=== PATIENT | female | born 1995 | race Caucasian/White ===

== ENCOUNTER 2016-09-23 23:42 | Observation (INO) | payer MEDICAID ==
[2016-09-23] MEDS ORDERED: Sodium Chloride 0.9% 10 ML Syringe FLUSH PRN (23:44)
[2016-09-23] MEDS ORDERED: Naloxone 0.4 MG/ML SDV IM ONE (23:44)
[2016-09-23] MEDS ORDERED: Sodium Chloride 0.9% 1,000 ML IV SCH (23:45)
[2016-09-24 00:25] LABS: CHLORIDE,CL 111 mmol/L (98-107); SODIUM,NA 148 mmol/L (136-145)
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
[2016-09-24] MEDS ORDERED: Naloxone 0.4 MG/ML SDV IVPUSH ONE (03:05)
[2016-09-24] MEDS ORDERED: Acetaminophen 325 MG Tab PO PRN (04:09)
[2016-09-24] MEDS ORDERED: Ondansetron 4 MG/2 ML SDV IV PRN (04:09)
[2016-09-24] MEDS ORDERED: LORazepam 2 MG/ML MDV IVPUSH PRN (04:14)
[2016-09-24] MEDS ORDERED: Nicotine 21 MG/24 Hr Patch TRDERM ONE (04:30)
[2016-09-24] MEDS ORDERED: MVI, Adult with Vitamin K 10 ML, Folic Acid 1 MG, Thiamine 100 MG in Sodium Chloride 0.... IV SCH ×4 (04:30)
--- NOTE | 2016-09-24 04:39 | PCM.HP ---
H&P History of Present Illness - General Date of Service: 09/24/16 Admit Problem/Dx: ETOH intoxication Altered Mental Status Dehydration Source of Information: EMS, EMS Notes Reviewed, Family, RN, RN Notes Reviewed History Limitations: Reports: Intoxication - History of Present Illness Initial Comments - Free Text/Narative: [id number] 02:30 21-year-old female with a past medical history of depression, anxiety, insomnia is admitted to the observation unit for a diagnosis of acute alcohol intoxication, altered mental status, dehydration. History is obtained from the EMS crew and the patient's boyfriend. According to the EMS, they were dispatched to [place] call for [place] Upon the EMS arrival the patient was unresponsive. The patient's vital signs were stable and the patient was brought to the emergency room. Upon arrival the patient was not responsive, although she was maintaining a patent airway. According to the patient's boyfriend, the patient had started drinking alcohol earlier this evening. The boyfriend states that he did not think anything of it as she seemed to be acting normally. The patient's boyfriend states that the patient left the house for no reason. The boyfriend states that he did not go after the patient because he was watching their child. The boyfriend states the patient does not consume alcohol on a regular basis. The boyfriend states that he is unaware of any current problems or concerns going on with the patient that would justify her behavior this evening. The foot from states there has been no recent issues or recent arguments. 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, Neurological History: Reports: Other (See Below) (Insomnia) Psychiatric History: Reports: Addiction, Anxiety, Depression, Suicidal Ideation - Past Surgical History HEENT Surgical History: Reports: Tonsillectomy Social & Family History - Family History Family Medical History: Noncontributory - Tobacco Use Smoking Status *Q: Current Every Day Smoker Years of Tobacco use: 3 Packs/Tins Daily: 0.5 Used Tobacco, but Quit: No Second Hand Smoke Exposure: Yes - Alcohol Use Alcohol Use History: Yes Alcohol Use in Last Twelve Months: Yes - Recreational Drug Use Recreational Drug Use: No Drug Use in Last 12 Months: Yes Recreational Drug Type: Reports: Cocaine, Codiene, Ecstasy, Heroin, Marijuana/ Hashish, Methamphetamine, Oxycodone, Ritalin, Valium, Vicodin, Xanax Recreational Drug Use Frequency: Daily - Living Situation & Occupation Living situation: Reports: with Significant Other H&P Review of Systems - Review of Systems: Review Of Systems: Unable To Obtain (due to acute ETOH intoxication) Exam - Exam Exam: See Below - Vital Signs Vital Signs: Last Vital Signs Temp 37.1 C 09/23/16 23:42 Pulse 81 09/24/16 02:45 Resp 16 09/24/16 02:45 BP 96/47 L 09/24/16 02:45 Pulse Ox 97 09/23/16 23:42 Weight: 68.039 kg - Exam Quality Assessment: Supplemental Oxygen, Urinary Catheter General: Obtunded HEENT: Pupils Equal, Pupils Reactive, PERRLA Lungs: Clear to Auscultation, Normal Respiratory Effort Cardiovascular: Regular Rate, Regular Rhythm, Normal S1, Normal S2 Abdomen: Normal Bowel Sounds, Soft, Hypoactive Bowel Sounds Extremities: Normal Inspection Peripheral Pulses: 2+: Radial (L), Radial (R) Skin: Warm, Dry, Intact Neuro Extensive - Mental Status: Withdraws to Pain - Patient Data Result Diagrams: 09/23/16 23:55 09/23/16 23:50 *Q Meaningful Use (ADM) - VTE *Q VTE Criteria *Q: VTE Mechanical Contraindications *Q: Confused Consciousness - Stroke *Q Stroke Criteria *Q: - AMI *Q AMI Criteria *Q: - Problem List (1) Alcoholic intoxication without complication SNOMED Code(s): 69728719 ICD Code: F10.920 - ALCOHOL USE, UNSPECIFIED WITH INTOXICATION, UNCOMPLICATED Status: Acute Priority: High Current Visit: Yes Onset Date : ~09/23/16 (2) Unresponsiveness SNOMED Code(s): 695010742 ICD Code: R41.89 - OTH SYMPTOMS AND SIGNS W COGNITIVE FUNCTIONS AND AWARENESS Status: Acute Priority: High Current Visit: Yes Onset Date: ~ 09/23/16 (3) Dehydration SNOMED Code(s): 44118758 ICD Code: E86.0 - DEHYDRATION Status: Acute Priority: Medium Current Visit: Yes (4) Hypokalemia SNOMED Code(s): 96742143 ICD Code: E87.6 - HYPOKALEMIA Status: Acute Priority: Medium Current Visit: Yes Problem List Initiated/Reviewed/Updated: Yes Orders Last 24hrs: Active Orders 24 hr Category Date Time Status Ambulate [RC] .PRN Care 09/24/16 04:11 Active Height and Weight [RC] UPON Care 09/24/16 04:09 Active Intake and Output [RC] 06,18 Care 09/24/16 04:10 Active May Shower [RC] .PRN Care 09/24/16 04:09 Active Oxygen Therapy [RC] PRN Care 09/24/16 04:09 Active Up With Assistance [RC] .PRN Care 09/24/16 04:09 Active VTE/DVT Education [RC] .PRN Care 09/24/16 04:09 Active Vital Signs [RC] 06,10,14,18,22,02 Care 09/24/16 04:09 Active Consult to Case Management [CONS] Routine Cons 09/24/16 04:09 Active Nothing per Oral Now Diet [DIET] Diet 09/24/16 Breakfast Active BASIC METABOLIC PANEL,BMP [CHEM] Routine Lab 09/24/16 05:11 Ordered CBC WITH AUTO DIFF [HEME] Routine Lab 09/24/16 05:11 Ordered Acetaminophen [Tylenol] Med 09/24/16 04:09 Active 650 mg PO Q4H PRN LORazepam [Ativan] Med 09/24/16 04:14 Active 1 mg IVPUSH Q2H PRN MVI, Adult with Vitamin K [Infuvite Adult] 10 ml Med 09/24/16 04:30 Active Folic Acid 1 mg Thiamine [Vitamin B-1] 100 mg Sodium Chloride 0.9% [Normal Saline] 1,000 ml IV Q24H Nicotine [Habitrol] Med 09/25/16 08:00 Active 21 mg TRDERM DAILY Ondansetron [Zofran] Med 09/24/16 04:09 Active 4 mg IV Q6H PRN Resuscitation Status Routine Resus Stat 09/24/16 04:09 Ordered Medication Orders Acetaminophen (Tylenol) 650 mg PO Q4H PRN PRN Reason: Pain (Mild 1-3)/fever Sodium Chloride (Normal Saline) 1,000 mls @ 999 mls/hr IV ASDIRECTED [facility] Last Admin: 09/23/16 23:44 Dose: 999 mls/hr Multivitamins/Minerals 10 ml/Folic Acid 1 mg/ Thiamine HCl 100 mg/ Sodium Chloride 1,011.2 mls @ 150 mls/hr IV Q24H RAYMOND Stop: 09/26/16 11:15 Lorazepam (Ativan) 1 mg IVPUSH Q2H PRN PRN Reason: Agitation Nicotine (Habitrol) 21 mg TRDERM DAILY RAYMOND Ondansetron HCl (Zofran) 4 mg IV Q6H PRN PRN Reason: Nausea/Vomiting Sodium Chloride (Saline Flush) 10 ml FLUSH ASDIRECTED PRN PRN Reason: Keep Vein Open Assessment/Plan Comment:: 21-year-old patient with a past medical history of depression, anxiety, insomnia will be admitted to the observation unit for acute alcohol intoxication , unresponsiveness, dehydration, and hypokalemia. The patient will be started on a banana bag. The patient will be kept n.p.o. Duron catheter will remain in place do to unresponsiveness and incontinence. The patient will have when necessary lorazepam for any agitation. The patient is a cold one. The patient will be transferred to a higher level of care if the need does arise. I anticipate this patient being admitted for less than 48 hours.
[2016-09-24 06:56] LABS: CHLORIDE,CL 116 mmol/L (98-107); SODIUM,NA 150 mmol/L (136-145)
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
[2016-09-24 13:55] VITALS: BP 129/78
[2016-09-25] MEDS ORDERED: Nicotine 21 MG/24 Hr Patch TRDERM SCH (08:00)
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
== END 2016-09-24 17:05 | disposition home or self-care (01) ==
LOC: VM.ED 23:42 → VM.MS 09-24 02:30 → UNDOADMOB 09-24 03:53 → VM.MS 09-24 03:53
PROVIDERS: ADMIT Nurse Practitioner Family; ATTEND Nurse Practitioner Family
DX: F10.129 Alcohol abuse with intoxication, unspecified (principal); R41.82 Altered mental status, unspecified; E86.0 Dehydration; E87.6 Hypokalemia; F41.9 Anxiety disorder, unspecified; F32.9 Major depressive disorder, single episode, unspecified; Z79.899 Other long term (current) drug therapy; F17.210 Nicotine dependence, cigarettes, uncomplicated
CPT/HCPCS: 36415; 70450; 80048; 80053; 80305; 81001; 81025; 85025; 96361; 96374; 99285; A9270; G0480; J2310; J3411; J7030; 96365; 96366; 96375; G0378

== ENCOUNTER 2016-12-26 14:42 | Emergency (ER) | payer MEDICAID ==
[2016-12-26 15:12] VITALS: BP 117/71
[2016-12-26] MEDS ORDERED: Take Home: traMADol 50 MG, 4 Tab Pack PO ONE (15:19)
[2016-12-26] MEDS ORDERED: Hydrocortisone/Neomycin/Polymyxin B Otic Susp 10 ML Bottle EARRT SCH (15:30)
--- NOTE | 2016-12-27 08:43 | ER ---
Date of Service: 12/26/2016 SUBJECTIVE: Diane presents to the emergency room with complaints of pain to her left ear. She was seen by Renetta Wall in the clinic and was diagnosed with "ear infection" and was started on amoxicillin for this. She did not state if it was an otitis externa or otitis media. The patient states that she started taking the medication on and she is continuing to have severe discomfort and is requesting further evaluation and treatment for her pain. PAST MEDICAL HISTORY: 1. Depression. 2. Anxiety. MEDICATIONS: 1. Escitalopram 10 mg daily. 2. vitamins. 3. Amoxicillin. ALLERGIES: NKDA. REVIEW OF SYSTEMS: General: No fever or chills. HEENT: Please see history of present illness. She denies any sinus congestion. No sore throat. Respiratory: No shortness of breath. Cardiac: Denies any substernal chest pain. Remainder of her review of systems is within normal limits. PHYSICAL EXAMINATION: General: This is a 21-year-old female, who is in no acute distress. Vital Signs: Blood pressure is 117/71, pulse rate is 78, temperature is 36.8, respiratory rate 16, O2 saturations 99%. Skin: Warm, pink, and dry. HEENT: Mouth, oral mucosa is moist. Examination of her ears reveal erythema and edema to the external canal. No discharge noted. TMs are clear. She does have tragal tenderness. No obvious discharge noted. ASSESSMENT: Otitis externa. PLAN: The patient was started on Ciprodex drops 4 drops to the left ear canal 4 times a day. She can continue with the amoxicillin. Also, did start her on a short course of tramadol with instructions to take 1 every 4-6 hours as needed for pain. She should also take ibuprofen 600 mg every 6 hours in addition. Again, continue with the amoxicillin. Follow up in the clinic in the next 5 to 7 days. MWK: 12/26/2016 20:06:52 MODL: 12/27/2016 01:03:43 /[id number]
== END 2016-12-26 15:35 | disposition home or self-care (01) ==
LOC: VM.ED 14:42
DX: H60.92 Unspecified otitis externa, left ear (principal); F41.9 Anxiety disorder, unspecified; F32.9 Major depressive disorder, single episode, unspecified
CPT/HCPCS: 99282; A9270

== ENCOUNTER 2017-12-18 16:32 | Emergency (ER) | payer MEDICAID ==
[2017-12-18 16:45] VITALS: BP 137/72
[2017-12-18] MEDS: cefTRIAXone 2 GM Vial IM ONE (17:16)
--- NOTE | 2017-12-19 02:12 | EDM.PDOC ---
ED HPI GENERAL MEDICAL PROBLEM - General Chief Complaint: Genitourinary Problem Time Seen by Provider: 12/18/17 16:32 Source of Information: Reports: Patient History Limitations: Reports: No Limitations - History of Present Illness INITIAL COMMENTS - FREE TEXT/NARRATIVE: Complains of dysuria for the past day. No fever or chills. No nausea, vomiting or diarrhea. States that she has urinary frequency and malaise as well. States that the symptoms started in the past 24 hours. Onset Date: 12/18/17 Location: Reports: Abdomen, Back Lower Back Pain Score (Numeric/FACES): 7 - Related Data Allergies Allergy/AdvReac Type Severity Reaction Status Date / Time No Known Allergies Allergy Verified 12/18/17 16:53 Home Meds: Home Meds Escitalopram Oxalate 10 mg PO DAILY 09/24/16 [History] hydrOXYzine HCl [Atarax] 25 mg PO QID PRN 09/24/16 [History] Amoxicillin [IMW: Amoxicillin] 500 mg PO .TWICE DAILY 12/26/16 [History] Pnv with Ca,No.72/Iron/Fa [Preplus Ca-Fe 27 mg-FA 1 mg Tb] 1 each PO DAILY 12/26 [History] Past Medical History - Past Health History Medical/Surgical History: Denies Medical/Surgical History HEENT History: Reports: Otitis Media TECHNICAL APPLICATIONS SCIENTIST History: Reports: PID, Other TECHNICAL APPLICATIONS SCIENTIST History: she is 3 weeks and 3 days Neurological History: Reports: Other (See Below) Psychiatric History: Reports: Addiction, Anxiety, Depression, Suicidal Ideation Other Psychiatric History: Relates to hx of anxiety, depression, and suicidal ideations off and on for a long time. - Past Surgical History HEENT Surgical History: Reports: Tonsillectomy Social & Family History - Family History Family Medical History: Noncontributory - Tobacco Use Smoking Status *Q: Current Every Day Smoker Years of Tobacco use: 6 Packs/Tins Daily: 0.5 - Recreational Drug Use Recreational Drug Use: Yes Recreational Drug Type: Reports: Marijuana/Hashish Recreational Drug Use Frequency: Daily - Living Situation & Occupation Living situation: Reports: with Significant Other ED ROS GENERAL - Review of Systems Review Of Systems: See Below Constitutional: Reports: No Symptoms HEENT: Reports: No Symptoms Respiratory: Reports: No Symptoms Cardiovascular: Reports: No Symptoms Endocrine: Reports: No Symptoms GI/Abdominal: Reports: No Symptoms : Reports: Dysuria, Frequency, Hematuria, Urgency Musculoskeletal: Reports: No Symptoms Skin: Reports: No Symptoms Neurological: Reports: No Symptoms Psychiatric: Reports: No Symptoms Hematologic/Lymphatic: Reports: No Symptoms Immunologic: Reports: No Symptoms ED EXAM, GENERAL - Physical Exam Exam: See Below Exam Limited By: No Limitations General Appearance: Alert, WD/WN, No Apparent Distress Respiratory/Chest: No Respiratory Distress, Lungs Clear, Normal Breath Sounds, No Accessory Muscle Use, Chest Non-Tender Cardiovascular: Normal Peripheral Pulses, Regular Rate, Rhythm, No Edema, No Gallop, No JVD, No Murmur, No Rub GI/Abdominal: Normal Bowel Sounds, Soft, Non-Tender, No Organomegaly, No Distention, No Abnormal Bruit, No Mass (Female) Exam: Deferred Course - Vital Signs Last Recorded V/S: Last Vital Signs Temp 36.6 C 12/18/17 16:38 Pulse 90 12/18/17 16:38 Resp 18 12/18/17 16:38 BP 137/72 12/18/17 16:38 Pulse Ox 99 12/18/17 16:38 - Orders/Labs/Meds Meds: Medications Discontinued Medications Generic Name Dose Route Start Last Admin Trade Name Freq PRN Reason Stop Dose Admin Ceftriaxone Sodium 2 gm 12/18/17 17:03 12/18/17 17:16 Rocephin IM 12/18/17 17:04 2 gm ONETIME ONE Administration Departure - Departure Time of Disposition: 17:18 Disposition: Home, Self-Care 01 Clinical Impression: UTI, Urinary tract infectious disease - Discharge Information Instructions: Urinary Tract Infection, Adult Referrals: Fabiola Gee MD [Primary Care Provider] - Forms: ED Department Discharge Additional Instructions: Bactrim DS 1 twice daily for 5 days Drink plenty of fluids Follow-up in clinic in 10-14 days for recheck. - Assessment/Plan Plan: Bactrim DS 1 twice daily for 5 days Drink plenty of fluids Follow-up in clinic in 10-14 days for recheck.
== END 2017-12-18 17:18 | disposition home or self-care (01) ==
LOC: VM.ED 16:32
DX: N39.0 Urinary tract infection, site not specified (principal); F17.210 Nicotine dependence, cigarettes, uncomplicated; Z79.899 Other long term (current) drug therapy
CPT/HCPCS: 96372; 99283; J0696